=== PATIENT | female | born 1955 | race Two or more races ===

== ENCOUNTER 2020-08-17 07:27 | Outpatient (CLI) | payer OTHER | END 2020-08-17 07:32 | disposition home or self-care (01) | LOC: EDBD 07:27 → TOM 07:27 | PROVIDERS: ATTEND Internal Medicine Gastroenterology | DX: K57.90 Diverticulosis of intestine, part unspecified, without perforation or abscess without bleeding (principal); Q44.6 Cystic disease of liver; Z12.11 Encounter for screening for malignant neoplasm of colon; K63.5 Polyp of colon; K56.600 Partial intestinal obstruction, unspecified as to cause ==

== ENCOUNTER → 2022-05-12 | Outpatient (CLI) | payer OTHER | END | disposition home or self-care (01) | LOC: SONOGRAMA 09:40 | PROVIDERS: ATTEND Pathology Anatomic Pathology & Clinical Pathology | DX: D34 Benign neoplasm of thyroid gland (principal); E04.9 Nontoxic goiter, unspecified; E04.8 Other specified nontoxic goiter ==